=== PATIENT | male | born 1990 | race Two or more races ===

== ENCOUNTER 2019-08-28 23:20 | Emergency (ER) | payer SELFPAY ==
[~2019-08-28] VITALS: Ht 175.3 cm; Wt 81.6 kg
[2019-08-28 23:54] LABS: BASO % 0 % (0-3); EOS % 0 % (0-3); HEMATOCRIT 41.4 % (39.0-53.0); HEMOGLOBIN 14.1 g/dL (13.0-17.5); LYMPH # 1.4 x10^3/uL (1.0-4.8); LYMPH % 9 % (24-48); MEAN CORPUSCULAR HEMOGLOBIN 29 pg (25-35); MEAN CORPUSCULAR HGB CONC 34 g/dL (31-37); MEAN CORPUSCULAR VOLUME 86 fL (79-100); MONO % 6 % (0-9); NEUT # 13.3 x10^3/uL (1.8-7.7); NEUT % 84 % (31-73); PLATELET COUNT 224 x10^3/uL (140-400); RED BLOOD COUNT 4.83 x10^6/uL (4.30-5.70); RED CELL DISTRIBUTION WIDTH 13.6 % (11.5-14.5); WHITE BLOOD COUNT 15.8 x10^3/uL (4.0-11.0)
[2019-08-29] MEDS ORDERED: fentaNYL PF VIAL 100 MCG/2 ML VIAL IV ONE
[2019-08-29] MEDS ORDERED: ONDANSETRON PF 4 MG/2 ML VIAL. IV ONE
[2019-08-29 00:01] LABS: CALCIUM 9.1 mg/dL (8.5-10.1); CREATININE 0.9 mg/dL (0.7-1.3); GFR 99.1; POTASSIUM 3.5 mmol/L (3.5-5.1)
[2019-08-29 00:02] LABS: BILIRUBIN,URINE NEGATIVE (NEG); CLARITY,URINE CLEAR; COLOR,URINE YELLOW; NITRITE,URINE NEGATIVE (NEG); PH,URINE 5.5; PROTEIN,URINE NEGATIVE (NEG-TRACE); UROBILINOGEN,URINE 0.2 mg/dL (0.2 mg/dL)
[2019-08-29 00:06] LABS: BARBITURATES NEG (NEG); BENZODIAZEPINES NEG (NEG); CANNABINOIDS NEG (NEG); COCAINE NEG (NEG); METHADONE NEG (NEG); OPIATES NEG (NEG); PHENCYCLIDINE NEG (NEG)
[2019-08-29 00:07] LABS: ALBUMIN 4.5 g/dL (3.4-5.0); ALBUMIN/GLOBULIN RATIO 1.2 (1.0-1.7); TOTAL BILIRUBIN 0.4 mg/dL (0.2-1.0); TOTAL PROTEIN 8.3 g/dL (6.4-8.2)
--- NOTE | 2019-08-29 00:08 | RAD ---
Examination: CT head, cervical spine, maxillofacial bones INDICATION: COMPARISON: None Available. Exposure: One or more of the following individualized dose reduction techniques were utilized for this examination: 1. Automated exposure control 2. Adjustment of the mA and/or kV according to patient size 3. Use of iterative reconstruction technique TECHNIQUE: 5 mm contiguous axial images of the head, cervical spine, facial bones were performed without contrast and coronal sagittal reformats are performed.. FINDINGS: Faint questionable hyperdensity identified along the posterior falx could be hyperdense falx or subtle subdural bleed. The sapp-white matter differentiation is maintained. The lateral ventricles, third ventricle fourth ventricle appropriate for age. The basal cisterns are uneffaced. The bilateral orbital globes appear intact. Moderate soft tissue swelling identified in the preseptal region anterior to the right orbital globe with moderate fat stranding and swelling identified in the right cheek region. Minimal right proptosis. There is comminuted fracture of the medial aspect of the inferior orbital wall on the right with herniation of fat into the right maxillary sinus best visualized on coronal series 16 image 16. The cervical vertebral body heights are maintained. No evidence of listhesis. The bilateral facets are well aligned. There is no acute fracture or subluxation of the cervical spine identified. Lateral masses of C1 are aligned with C2 vertebra. The C2 dens appears intact. IMPRESSION: 1. Comminuted displaced fracture of the medial aspect of the inferior orbital wall on the right with herniation of fat into the right maxillary sinus. 2. Large soft tissue swelling/hematoma in the right cheek with preseptal soft tissue swelling anterior to the right orbital globe likely secondary to injury. 3. Subtle hyperdensity identified along the posterior falx probably hyperdense falx or subtle subdural bleed. Close interval follow-up examination can be considered. 4. No acute fracture the cervical spine. Correlate clinically. Electronically signed by: Kraig Palacio MD (08/29/2019 12:05 AM) [facility]
[2019-08-29 00:09] LABS: AMPHETAMINE/METHAMPHETAMINE NEG (NEG)
[2019-08-29] MEDS ORDERED: ONDANSETRON PF 4 MG/2 ML VIAL. IVP ONE (00:30)
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
[2019-08-29 01:01] LABS: BACTERIA,URINE 0 /HPF (0-FEW); HYALINE CASTS, URINE FEW /HPF; RBC,URINE OCC /HPF (0-2); SQUAMOUS EPITHELIAL CELL,UR FEW /LPF
[2019-08-29 01:30] VITALS: BP 113/68
[2019-08-29 02:41] LABS: % BANDS 3 % (0-9); % LYMPHS 9 % (24-48); % MONOS 8 % (0-10); % SEGS 80 % (35-66); PLT ESTIMATE ADEQUATE (ADEQUATE)
== END 2019-08-29 01:45 | disposition short-term general hospital (02) ==
LOC: EEVIPCON 23:20 → ER 23:20
DX: S06.5X9A Traumatic subdural hemorrhage with loss of consciousness of unspecified duration, initial encounter (principal); S02.19XA Other fracture of base of skull, initial encounter for closed fracture; S01.111A Laceration without foreign body of right eyelid and periocular area, initial encounter; F10.10 Alcohol abuse, uncomplicated; Y90.6 Blood alcohol level of 120-199 mg/100 ml; Z88.0 Allergy status to penicillin; Y08.89XA Assault by other specified means, initial encounter; Y93.01 Activity, walking, marching and hiking; Y92.89 Other specified places as the place of occurrence of the external cause; Y99.8 Other external cause status
CPT/HCPCS: 36415; 70450; 70486; 72125; 80053; 80307; 81001; 85007; 85025; 96374; 96375; 99291; 99292; G0480; J2405; J3010; 96360; 99285-25